=== PATIENT | male | born 1955 | race American Indian/Alaskan Native ===

== ENCOUNTER 2018-12-16 14:03 | Emergency (ER) | payer SELFPAY ==
[~2018-12-16] VITALS: Ht 170.2 cm; Wt 90.9 kg
[2018-12-16] MEDS ORDERED: NORCO 325 MG-51 TA1 PO (16:02)
[2018-12-16 16:17] VITALS: BP 158/91
== END 2018-12-16 16:17 | disposition home or self-care (01) ==
LOC: ED 14:03
DX: M77.9 Enthesopathy, unspecified (principal); F17.210 Nicotine dependence, cigarettes, uncomplicated; W18.30XA Fall on same level, unspecified, initial encounter; Y92.009 Unspecified place in unspecified non-institutional (private) residence as the place of occurrence of the external cause

== ENCOUNTER 2019-03-04 19:34 | Emergency (ER) | payer SELFPAY ==
[~2019-03-04] VITALS: Ht 170.2 cm; Wt 92.3 kg
[~2019-03-04 19:34] MED LIST: NORCO 325 MG-51 TA1 PO
[2019-03-04] MEDS ORDERED: NORCO 325 MG-51 TA1 PO (21:35)
[2019-03-04 22:00] VITALS: BP 127/85
== END 2019-03-04 22:00 | disposition home or self-care (01) ==
LOC: ED 19:34
DX: S22.41XA Multiple fractures of ribs, right side, initial encounter for closed fracture (principal); F17.210 Nicotine dependence, cigarettes, uncomplicated; W00.9XXA Unspecified fall due to ice and snow, initial encounter